=== PATIENT | male | born 1965 | race Two or more races ===

== ENCOUNTER 2024-08-06 08:50 | Day surgery (SDC) | payer MEDICAID, SELFPAY ==
--- NOTE | 2024-08-02 06:00 | EKG_ITS ---
[facility] Test Date: 2024-08-02 Pat Name: FREIDA EVERETT Department: Room: - Gender: Male Primary Teacher: JESICA : 1965 Requested By: Lj Saez Order Number: [id number] Reading MD: Lj Saez Measurements Intervals [place] Rate: 47 P: 3 NC: 158 QRS: 34 QRSD: 98 T: 49 QT: 427 QTc: 379 Interpretive Statements SINUS BRADYCARDIA No previous ECG available for comparison /store/S0/[id number]/ecg/[id number].pdf
[2024-08-02 08:31] VITALS: BMI 28.1
[2024-08-02 09:01] LABS: Collection Type, Urine Clean Catch; Squamous Epithelial Cell,Urine 0 /hpf (0-5)
[2024-08-02 10:14] LABS: Basophils % (Auto) 0 % (0-2.5); Eosinophils % (Auto) 1 % (0-10); Hematocrit 44.9 % (41.0-53.0); Immature Granulocytes % (Auto) 0 % (0-0); Immature Granulocytes Auto 0.01 Thou/mm3 (0.00-0.00); Lymphocytes # (Auto) 2.1 Thou/mm3 (1.0-4.8); Lymphocytes % (Auto) 37 % (10-50); Mean Corpuscular HGB Conc 33.4 g/dl (31.0-37.0); Mean Corpuscular Hemoglobin 32.1 pg (25.0-35.0); Mean Corpuscular Volume 96 fL (80-100); Monocytes # (Auto) 0.4 Thou/mm3 (0.0-0.8); Monocytes % (Auto) 8 % (0-12); Neutrophils # (Auto) 3.1 Thou/mm3 (1.8-7.7); Neutrophils % (Auto) 54 % (37-80); Nucleated Red Blood Cell % 0 /100 WBC (0); Platelet Count 188 Thou/mm3 (140-440); RDW Standard Deviation 46.9 fL (35.1-43.9); Red Blood Count 4.67 Miln/mm3 (4.50-5.90); White Blood Count 5.7 Thou/mm3 (3.8-10.6)
[2024-08-02 10:30] LABS: Alanine Aminotransferase 26 U/L (10-49); Albumin, Serum 4.4 gm/dL (3.4-4.8); Albumin/Globulin Ratio 1.8 (1.2-2.2); Alkaline Phosphatase 80 U/L (46-116); Anion Gap 6 (7-16); Aspartate Amino Transferase 17 U/L (0-34); BUN/Creatinine Ratio 17 Ratio (12-20); Bilirubin,Total 1.1 mg/dL (0.3-1.2); Blood Urea Nitrogen 17 mg/dL (9-23); Calcium 9.4 mg/dL (8.3-10.6); Calcium (Corrected) 9.4 mg/dL (8.5-10.1); Carbon Dioxide 29.3 mMol/L (20.0-31.0); Chloride 106 mMol/L (98-107); Estimated Creatinine Clearance 77.7 mL/min (>60); Globulin 2.5 gm/dL (2.3-3.5); Glucose 86 mg/dL (74-106); Osmolality,Calculated 281 (275-295); Sodium 141 mMol/L (136-145); Total Protein 6.9 gm/dL (5.7-8.2); eGFR > 60 See Note
[2024-08-02 11:03] LABS: Bilirubin,Urine Negative (Negative); Blood,Urine Negative (Negative); Clarity,Urine Clear (Clear/Hazy); Color,Urine Lt-Yellow (Lt Yel-Yel); Glucose, Urine Negative (Negative); Ketones,Urine Negative (Negative); Leukocyte Esterase,Urine Negative (Negative); Nitrite,Urine Negative (Negative); Protein,Urine Negative (Neg - Trace); RBC,Urine 2 /hpf (0-3); Specific Gravity,Urine 1.022 (1.001-1.035); Urobilinogen,Urine Negative mg/dL (0.0-1.0); WBC,Urine 1 /hpf (0-5)
--- NOTE | 2024-08-05 14:16 | ESHP_ITS ---
RE: FREIDA MONTEJO : 1965 DATE OF ADMISSION: 08/06/2024 HISTORY OF PRESENT ILLNESS: A 58-year-old gentleman who was referred to me. He is a Thai-speaking male with elevated PSA of 7.6. It used to be 5.2. The patient has an enlarged prostate. He has nocturia 3 times. Slow urinary stream. No burning. No blood in the urine. PAST SURGICAL HISTORY: None. PAST MEDICAL HISTORY: He has a history of hypertension and no history of diabetes. SOCIAL HISTORY: He has four children. ALLERGIES: NONE KNOWN. HOME MEDICATIONS: He takes, 1. Aspirin. 2. Tamsulosin once a day. 3. Lisinopril. 4. Norvasc. PHYSICAL EXAMINATION: HEENT: Normal. NECK: Supple. LUNGS: Clear. CARDIOVASCULAR: Heart sounds are normal. ABDOMEN: Soft without any organomegaly. No guarding. No rigidity. EXTREMITIES: Normal. GENITOURINARY: Phallus is normal. Testes are down in scrotum. RECTAL: Examination reveals moderately enlarged smooth prostate. IMPRESSION: 1. Prostatism. 2. Prostatic obstruction. 3. Elevated PSA of 7.6. PLAN: Cystoscopy and transrectal prostatic ultrasound with ultrasound-guided prostatic needle biopsy. Planned procedure, risks and complications have been discussed with the patient. The patient has understood them and agreed to proceed. DT: 13:37:31 TT: 14:14:00 Ref: [id number] - TID: [id number]
[2024-08-06] VITALS (8 sets, daily range): BP systolic 123–158; BP diastolic 80–88; PULSE 52–70; RESP 12–25; TEMP 36.3–36.8; O2SAT 95–97; BMI 28.6
--- NOTE | 2024-08-06 09:51 | CHAP ---
Prayed with patient for upcoming procedure.
--- NOTE | 2024-08-06 11:57 | SUR.PHASEI ---
1123: Pt received in [facility] via gurmarco antonio. Report from Geremias RIVERA and [employer]. Pt groggy, but awake. Resp even, unlabored. VS stable. Denies pain. 1150: Pt resting with no complaints voiced. Resp even, unlabored. VS stable. Denies pain.
--- NOTE | 2024-08-06 12:08 | SUR.PHASEII ---
1208: Pt more awake, alert. Resp even, unlabored. VS stable. Denies pain. Sitting up tolerating po fluids with no difficulty swallowing and no n/v.
--- NOTE | 2024-08-06 12:41 | SUR.PHASEII ---
1135: Pt fully awake
--- NOTE | 2024-08-06 12:41 | SUR.PHASEII ---
1135: Pt fully awake, oriented x3. VS stable. Denies pain. Pt dressed and assisted to restroom. Ambulation steady. Pt requested son interpret for him. Both stated understanding of discharge instructions. Pt discharged from [facility] in stable condition.
--- NOTE | 2024-08-06 14:11 | ESOP_ITS ---
RE: FREIDA MONTEJO : 1965 PREOPERATIVE DIAGNOSES: Prostatism, prostatic obstruction, elevated prostatic specific antigen of 5.2. POSTOPERATIVE DIAGNOSES: Prostatism, prostatic obstruction, elevated prostatic specific antigen of 5.2. PROCEDURES PERFORMED: Cystoscopy, urethral dilatation, transrectal prostatic ultrasound with ultrasound-guided prostatic needle biopsy. ANESTHESIA: Monitored anesthesia by Dr. Segundo. INDICATION: The patient is a 58-year-old male with prostatism, nocturia x3, prostatic obstruction with elevated PSA of 5.2. Rectally, he has a moderately enlarged prostate. He was now scheduled to have cystoscopy, transrectal prostatic ultrasound with ultrasound-guided prostatic needle biopsy. Planned procedure, risks, and complications have been discussed with the patient. The patient understood them and agreed to proceed. DESCRIPTION OF PROCEDURE: After the patient was brought to the operating table, under adequate monitored anesthesia and dorsal lithotomy position, parts were prepped and draped in the usual fashion. Cystoscopy was then carried out, which revealed adequate urethral meatus, normal-appearing urethra. Prostate is moderately large prostate bilobed with a small median lobe, residual urine 4 ounces, yellow and clear, and was sent for culture and sensitivity examination. There are no intravesical stones or tumors. Ureteral orifices were found to be normal in position and appearance. Transrectal prostatic ultrasound was then carried out. After turning the patient in left lateral position, prostatic volume was measured at 42 cubic cm. Biopsies were obtained from both lobes using ultrasound guidance. In all about 10 biopsies were obtained. The patient tolerated the entire procedure well and left the room in good condition. PLAN: We will wait for the biopsy report. DT: 11:37:33 TT: 14:09:00 Ref: [id number] - TID: [id number]
== END 2024-08-06 12:35 | disposition home or self-care (01) ==
PROVIDERS: Anesthesiology; PCP Nurse Practitioner Family; Referring Provider Surgery; Visit Provider Surgery
PROC: (CPT 55700; principal; 2024-08-06 10:45)
PROC: 0TJB8ZZ Inspection of Bladder, Via Natural or Artificial Opening Endoscopic (ICD-10-PCS; CPT 52000; 2024-08-06 10:45)
DX: N40.1 Benign prostatic hyperplasia with lower urinary tract symptoms (principal); N13.8 Other obstructive and reflux uropathy; R97.20 Elevated prostate specific antigen [PSA]; R35.1 Nocturia; I10 Essential (primary) hypertension
CPT/HCPCS: 55700; 76942; 52000; 36415; 80053; 81001; 85025; 87086; 93005; A4217; A4649; J0694; J2250; J2405; J2704; J3010; J3490; J1596

== ENCOUNTER 2024-08-14 16:57 | Emergency (ER) | payer MEDICAID, SELFPAY ==
[2024-08-14 17:03] VITALS: BP 166/93; PULSE 85; RESP 20; TEMP 36.6; O2SAT 96
--- NOTE | 2024-08-14 17:39 | PD.EDMALE ---
ED Male Genitalurinary RME/HPI General Chief complaint: Urogenital-Male Stated complaint: URINARY RETENTION Time Seen by Provider: 08/14/24 17:10 Arrival date/time: 08/14/24 16:57 58-year-old male presents to the emergency department for complaints of urinary retention patient reports he has a urologist and was seen this week reports that he saw his primary care doctor today and had his catheter removed since having the cath removed he has been able to urinate he was instructed to go to the ER for replacement of his catheter Limitations: no limitations Related Data Home Medications ?Medication ?Instructions ?Recorded ?Confirmed amlodipine 5 mg tablet 5 mg PO QDAY 08/02/24 08/06/24 aspirin 81 mg tablet,delayed 81 mg PO QDAY 08/02/24 08/06/24 release (Ecotrin Low Strength) ergocalciferol (vitamin D2) 1,250 1,250 mcg PO QWEEK 08/02/24 08/06/24 mcg (50,000 unit) capsule (Vitamin D2) lisinopril 40 mg tablet 40 mg PO QDAY 08/02/24 08/06/24 tamsulosin 0.4 mg capsule (Flomax) 0.4 mg PO QDAY 08/02/24 08/06/24 Allergies Allergy/AdvReac Type Severity Reaction Status Date / Time No Known Allergies Allergy Verified 08/06/24 11:40 Review of Systems Review of Systems Systems Reviewed: All systems reviewed, normal except as documented Constitutional Constitutional: Reports system reviewed and no additional complaints, except as documented, Denies fever(s) and Denies headache(s) Eyes Eyes: Reports system reviewed and no additional complaints, except as documented and Denies blurry vision ENT Ears, Nose, Mouth, and Throat: Reports system reviewed and no additional complaints, except as documented, Denies headache(s), Denies nasal congestion and Denies nasal discharge Cardiovascular Cardiovascular: Reports system reviewed and no additional complaints, except as documented, Denies chest pain and Denies dyspnea Respiratory Respiratory: Reports system reviewed and no additional complaints, except as documented, Denies chest congestion, Denies cough and Denies dyspnea Gastrointestinal Gastrointestinal: Reports system reviewed and no additional complaints, except as documented and Denies abdominal pain Genitourinary Genitourinary: Reports system reviewed and no additional complaints, except as documented and Reports other (Urinary retention) Integumentary/Breasts Skin/Breast: Reports system reviewed and no additional complaints, except as documented and Denies rash Neurologic Neurologic: Reports system reviewed and no additional complaints, except as documented, Reports as per HPI and Denies headache(s) Past Medical History Past Medical History NEUROLOGIC: Negative Neurological Disorders or Seizures CARDIAC: Positive Cardiac Disorders and Hypertension; Negative Congestive Heart Failure RESPIRATORY: Negative Chronic Obstructive Pulmonary Disease (COPD) GASTROINTESTINAL: Positive Gastrointestinal Disorders and Obesity; Negative Hepatitis GENITOURINARY: Positive Genitourinary Disorders and Benign Prostatic Hyperplasia; Negative Renal Disease MUSCULOSKELETAL: Negative Musculoskeletal Disorders ENDOCRINE: Negative Endocrine Disorders, Diabetes Mellitus Type 1 or Diabetes Mellitus Type 2 HEMATOLOGIC: Negative Blood Disorders OTHER HISTORY: Positive Chicken Pox and Measles; Negative Hospitalization, Autoimmune Disease, Shingles, Blood Transfusions, Blood Transfusion Reaction, Anesthesia Reactions or Cancer Family History FAMILY HISTORY: Positive Family Surgery; Negative Family Psychiatric Problems, Family Respiratory Disorders, Family Cardiac Disorders, Family Gastrointestinal Problems, Family Cancer or Family Anesthesia Reaction Social History SMOKING STATUS: Never smoker ED Exam General Limitations: Present no limitations General appearance: Present alert and in no apparent distress Head Head exam: Present atraumatic, normocephalic and normal inspection Eye Eye exam: Present normal appearance, PERRL and EOMI; Absent conjunctival injection ENT ENT exam: Present normal exam, normal oropharynx and mucous membranes moist Neck Neck exam: Present normal inspection, full ROM and trachea midline Chest Chest inspection: Present normal inspection and symmetric chest wall rise Respiratory Respiratory exam: Present normal lung sounds bilaterally; Absent respiratory distress Cardiovascular Cardiovascular exam: Present regular rate, normal rhythm and normal heart sounds Abdominal Exam Abdominal exam: Present soft and normal bowel sounds; Absent distention, tenderness, guarding, rebound or rigidity Extremities Exam Extremities exam: Present normal inspection and full ROM Back Exam Back exam: Present normal inspection and full ROM Neurological Exam Neurological exam: Present alert, oriented X3 and CN II-XII intact Psychiatric Psychiatric exam: Present normal affect and normal mood Skin Skin exam: Present warm, dry, intact and normal color Course Quality Measures none Orders Category Date Time Status Carlson [Urinary Catheter] NOW Care 08/14/24 17:10 Active Carlson to Leg Bag Routine Care 08/14/24 17:10 Ordered Vital Signs Vital signs: Vital Signs Temperature 97.8 F 08/14/24 17:03 Pulse Rate 85 08/14/24 17:03 Respiratory Rate 20 08/14/24 17:03 Blood Pressure 166/93 H 08/14/24 17:03 Pulse Oximetry (%) 96 08/14/24 17:03 Oxygen Delivery Method Room Air 08/14/24 17:03 O2 saturation 96% on room air within normal limits Urogenital - Male MDM Narrative MDM Narrative:: 58-year-old male presents to the emergency department for complaints of urinary retention patient reports he has a urologist and was seen this week reports that he saw his primary care doctor today and had his catheter removed since having the cath removed he has been able to urinate he was instructed to go to the ER for replacement of his catheter On exam patient well-appearing patient does not appear ill or toxic patient does report inability to urinate Carlson catheter placed patient had approximately 1 L removed patient reports relief of symptoms Patient instructed to follow-up with the urologist as soon as possible and to leave the catheter in place until he sees a urologist Patient data External records reviewed:: [facility] previous records Clinical information provided by:: patient Social determinants that could affect healthcare access:: none Patient has the following chronic illnesses:: See history How is presenting disease/condition affected by chronic disease/condition?: caused by Evaluation data The following diagnostics were reviewed and interpreted by me:: other (specify) Lab and/or radiology exams considered but not ordered:: Consider not ordered Interpretation Summary: N/A Medications / Prescriptions Medications or Prescriptions considered but not ordered:: No meds Medication administrations:: No meds Consultations Consultation(s) initiated? (list below): No Diagnosis Urogenital Male Differential Diagnosis: urinary tract infection, urethritis, acute retention of urine and other (Urinary retention) Most likely diagnosis given after review of the tests above:: Urinary retention Admission Indicated Admission indicated?: not indicated Admission Request Was there a request for admission?: No Disposition Plan Disposition Plan: Discharge Discharge Attestation Discharge Attestation: The patient and all family members were given an opportunity to ask questions and understood the discharge instructions. Discharge instructions specifically effects, indications for sooner follow up or return to the emergency department, and the expected course of current diagnosis. Patient condition: Stable Discharge Plan Plan Patient Disposition: HOME (Self Care) Disposition Comment: Stable Prescriptions/Referrals Prescriptions/Med Rec: No Action aspirin [Ecotrin Low Strength] 81 mg tablet,delayed release (DR/EC) 81 mg PO QDAY amlodipine 5 mg tablet 5 mg PO QDAY tamsulosin [Flomax] 0.4 mg capsule 0.4 mg PO QDAY lisinopril 40 mg tablet 40 mg PO QDAY ergocalciferol (vitamin D2) [Vitamin D2] 1,250 mcg (50,000 unit) capsule 1,250 mcg PO QWEEK Problem List Clinical Impression: Acute retention of urine Patient/Caregiver Discharge Instructions Education Materials: ED Urinary Retention, Male Additional Instructions: Please follow-up with your urologist as discussed for worsening symptoms return immediately please do not remove the Carlson catheter until you see your urologist Print Language: Mosotho Stand Alone Forms: Tammie Award Info., Patient Portal Info Letter PA/AUTOMOTIVE [employer]ING MECHANIC Supervising Physician PA/AUTOMOTIVE [employer]CONDITIONING MECHANIC Supervising Physician: Dr maddox
== END 2024-08-14 17:52 | disposition home or self-care (01) ==
LOC: SERX 17:46
PROVIDERS: Emergency Provider Emergency Medicine; PCP Physician Assistant
DX: R33.9 Retention of urine, unspecified (principal)
CPT/HCPCS: 51702; 99283

== ENCOUNTER → 2024-11-25 | Outpatient (CLI) | payer MEDICAID, SELFPAY ==
--- NOTE | 2024-11-25 10:10 | XR_ITS ---
Examination: Retroperitoneal ultrasound, complete Technique: Multiple high resolution grayscale images of the retroperitoneum obtained, including kidneys and bladder. Exam date and time:November 25, 2024 1026 hours INDICATIONS: Right flank pain beginning 3 months ago FINDINGS: Right kidney 11.9 cm renal cortex 2.1 cm 5.1 cm cyst Left kidney 11.8 cm cortex 2.1 cm Mild bilateral renal parenchymal scar formation Contracted urinary bladder Prostate 3.6 x 3.6 x 5.2 cm volume 34.4 cc no prostate nodules IMPRESSION: Mild bilateral renal parenchymal scar formation, no hydronephrosis
== END | disposition home or self-care (01) ==
PROVIDERS: PCP Nurse Practitioner Family; Referring Provider Nurse Practitioner Family; Visit Provider Nurse Practitioner Family
DX: N28.89 Other specified disorders of kidney and ureter (principal)
CPT/HCPCS: 76770